=== PATIENT | female | born 1935 | race Caucasian/White ===

== ENCOUNTER 2020-09-12 10:39 | Emergency (ER) | payer MEDICARE, OTHER ==
[~2020-09-12] VITALS: Ht 157.5 cm; Wt 79.0 kg
[~2020-09-12 10:39] MED LIST: ADVAIR; ALBUTEROL; BENAZEPRIL; LOVASTATIN; OMEP20CA14; SINGULAIR; XOPENEX
[2020-09-12] MEDS ORDERED: FOLI-43 PO (10:50)
[2020-09-12] MEDS ORDERED: METH2.5T PO (10:50)
[2020-09-12] MEDS ORDERED: ATOR10TA69 PO (10:50)
[2020-09-12] MEDS ORDERED: BENA1TAB21 PO (10:50)
[2020-09-12] MEDS ORDERED: ACETAMINOPHEN 325MG TABLET PO STA (10:54)
[2020-09-12 12:15] LABS: CLARITY URINE CLEAR (CLEAR); COLOR URINE YELLOW (YELLOW); KETONES URINE NEGATIVE (NEGATIVE); LEUKOCYTE ESTERASE URINE NEGATIVE (NEGATIVE); NITRITE URINE NEGATIVE (NEGATIVE); OCCULT BLOOD URINE NEGATIVE (NEGATIVE); PH URINE 6.5 (4.5-8.0); PROTEIN URINE NEGATIVE (NEGATIVE); SPECIFIC GRAVITY URINE 1.017 (1.005-1.030); UROBILINOGEN URINE 0.2 E.U./dL (0.2-1.0)
[2020-09-12] MEDS ORDERED: TRAM50TA3 PO (12:49)
[2020-09-12 13:04] VITALS: BP 125/65
== END 2020-09-12 13:05 | disposition home or self-care (01) ==
LOC: ER 10:39
DX: M54.41 Lumbago with sciatica, right side (principal); J45.909 Unspecified asthma, uncomplicated; E78.00 Pure hypercholesterolemia, unspecified; Z79.899 Other long term (current) drug therapy; Z90.710 Acquired absence of both cervix and uterus
CPT/HCPCS: 81003; 99283

== ENCOUNTER 2020-09-14 15:08 | Inpatient (IN) | payer BC, MEDICARE ==
[~2020-09-14] VITALS: Ht 157.5 cm; Wt 74.8 kg
[~2020-09-14 15:08] MED LIST changes: +ATOR10TA69 PO; +BENA1TAB21 PO; +FOLI-43 PO; +METH2.5T PO; +TRAM50TA3 PO
[2020-09-14] MEDS ORDERED: ACETAMINOPHEN 325MG TABLET PO ONE (15:45)
[2020-09-14 16:16] LABS: CLARITY URINE CLEAR (CLEAR); COLOR URINE YELLOW (YELLOW); KETONES URINE NEGATIVE (NEGATIVE); LEUKOCYTE ESTERASE URINE NEGATIVE (NEGATIVE); NITRITE URINE NEGATIVE (NEGATIVE); OCCULT BLOOD URINE NEGATIVE (NEGATIVE); PROTEIN URINE NEGATIVE (NEGATIVE); SPECIFIC GRAVITY URINE 1.026 (1.005-1.030)
[2020-09-14 19:05] LABS: HEMATOCRIT. 36.2 % (36.0-48.0); HEMOGLOBIN. 12.5 g/dL (12.0-16.0); MEAN CORPUSCULAR HEMOGLOBIN 32.2 pg (28.0-32.0); MEAN CORPUSCULAR VOLUME 93.1 fL (81.0-99.0); MEAN PLATELET VOLUME 7.7 fl (7.4-10.4); PLATELET 238 x1000/uL (130-400); RED BLOOD CELL COUNT 3.89 mill/uL (4.2-5.4); RED CELL DISTRIBUTION WIDTH 15.3 % (11.6-14.6)
[2020-09-14 19:14] LABS: CHLORIDE 105 mEq/L (98-107)
[2020-09-14 19:53] LABS: PLATELET ESTIMATE NORMAL
[2020-09-15] MEDS: DEXAMETHASONE 4MG/ML 1ML VIAL IV SCH ×4 (01:10→17:15)
[2020-09-15 09:00] VITALS: BP 166/50
[2020-09-15 10:11] VITALS: BP 160/50
[2020-09-15 12:00] VITALS: BP 156/58
[2020-09-15] MEDS ORDERED: ACETAMINOPHEN 325MG TABLET PO PRN (12:45)
[2020-09-15] MEDS ORDERED: MORPHINE SULFATE 2 MG/ML CPJ (NOT FOR IM USE) IV PRN (12:45)
[2020-09-15] MEDS ORDERED: DIPHENHYDRAMINE 50MG/ML VIAL IV PRN (12:45)
[2020-09-15] MEDS ORDERED: MAGNESIUM/ALUMINUM HYDROXIDE/SIMETHICONE 30ML UDC PO PRN (12:45)
[2020-09-15] MEDS ORDERED: GUAIFENESIN 200MG/10ML SUGAR FREE UDC PO PRN (12:45)
[2020-09-15] MEDS ORDERED: NA PHOS,M-B/NA PHOS,DI-BA ENEMA 118ML PR PRN (12:45)
[2020-09-15] MEDS ORDERED: LORAZEPAM 0.5MG TABLET PO PRN (12:45)
[2020-09-15] MEDS ORDERED: IPRATROPIUM/ALBUTEROL 0.5-3(2.5)MG/3ML NEB NEB PRN (12:45)
[2020-09-15] MEDS ORDERED: ONDANSETRON HCL 4MG/2ML INJ IV PRN (12:45)
[2020-09-15] MEDS ORDERED: DOCUSATE SODIUM 100MG CAPSULE PO PRN (12:45)
[2020-09-15] MEDS ORDERED: HYDROCODONE/ACETAMINOPHEN 5/325MG TABLET PO PRN (12:45)
[2020-09-15] MEDS ORDERED: ACETAMINOPHEN 650MG SUPP PR PRN (12:45)
[2020-09-15] MEDS ORDERED: ENOXAPARIN 30MG/0.3ML SYR SUBCUT SCH (13:00)
[2020-09-15] MEDS: AMLODIPINE 5MG TABLET PO SCH (13:02)
[2020-09-15] MEDS ORDERED: HYDR-4001 MT (15:28)
[2020-09-15] MEDS ORDERED: DEXA4TAB PO (15:28)
[2020-09-15 16:22] LABS: HEMATOCRIT. 40.2 % (36.0-48.0); HEMOGLOBIN. 13.8 g/dL (12.0-16.0); MEAN CORPUSCULAR HEMOGLOBIN 31.7 pg (28.0-32.0); MEAN CORPUSCULAR VOLUME 92.4 fL (81.0-99.0); MEAN PLATELET VOLUME 7.8 fl (7.4-10.4); PLATELET 261 x1000/uL (130-400); RED BLOOD CELL COUNT 4.35 mill/uL (4.2-5.4); RED CELL DISTRIBUTION WIDTH 15.5 % (11.6-14.6)
[2020-09-15 16:33] LABS: PROTHROMBIN TIME 10.8 sec (9.6-11.0)
[2020-09-15 16:58] LABS: CHLORIDE 105 mEq/L (98-107)
[2020-09-15 17:31] LABS: PLATELET ESTIMATE NORMAL
[2020-09-15 20:00] VITALS: BP 121/65
[2020-09-15] MEDS ORDERED: FAMOTIDINE 20MG TABLET PO SCH (21:00)
[2020-09-16] VITALS: BP 136/86
[2020-09-16] MEDS: DEXAMETHASONE 4MG/ML 1ML VIAL IV SCH ×3 (00:02→13:08)
[2020-09-16 04:00] VITALS: BP 130/85
[2020-09-16 08:00] VITALS: BP 165/63
[2020-09-16] MEDS ORDERED: ENOXAPARIN 40MG/0.4ML SYR SUBCUT SCH (09:00)
[2020-09-16] MEDS: AMLODIPINE 5MG TABLET PO SCH (09:55)
[2020-09-16 10:02] LABS: T4 FREE 1.1 ng/dL (0.76-1.46)
[2020-09-16] MEDS ORDERED: TRAM50TA3 MT (14:23)
[2020-09-16] MEDS ORDERED: GABA-529 PO (14:23)
[2020-09-16] MEDS ORDERED: GABAPENTIN 100MG CAPSULE PO SCH (14:30)
[2020-09-16 16:00] VITALS: BP 131/64
[2020-09-16 17:22] VITALS: BP 131/64
== END 2020-09-16 17:41 | disposition home health service (06) | DRG 552 ==
LOC: ER 15:08 → 6EST 19:00 → ENRESERV 09-15 07:25
PROVIDERS: ADMIT Internal Medicine; ATTEND Internal Medicine
DX: M48.061 Spinal stenosis, lumbar region without neurogenic claudication (principal); M48.56XA Collapsed vertebra, not elsewhere classified, lumbar region, initial encounter for fracture; M54.41 Lumbago with sciatica, right side; E78.5 Hyperlipidemia, unspecified; I10 Essential (primary) hypertension; K21.9 Gastro-esophageal reflux disease without esophagitis; M06.9 Rheumatoid arthritis, unspecified; R32 Unspecified urinary incontinence; J45.909 Unspecified asthma, uncomplicated; M19.90 Unspecified osteoarthritis, unspecified site; M47.816 Spondylosis without myelopathy or radiculopathy, lumbar region; R79.89 Other specified abnormal findings of blood chemistry; R26.89 Other abnormalities of gait and mobility; Z79.899 Other long term (current) drug therapy; Z90.710 Acquired absence of both cervix and uterus
CPT/HCPCS: 36415; 72148; 80053; 81003; 84439; 84443; 85025; 93306; 93970; 97162; 99285; J1100; J1650

== ENCOUNTER 2020-09-23 20:50 | Inpatient (IN) | payer BC ==
[~2020-09-23] VITALS: Ht 157.5 cm; Wt 79.4 kg
[~2020-09-23 20:50] MED LIST changes: +DEXA4TAB PO; +GABA-529 PO; +HYDR-4001 MT; -TRAM50TA3 PO
[2020-09-23] MEDS ORDERED: KETOROLAC 30MG/ML VIAL IV STA (23:39)
[2020-09-23] MEDS ORDERED: ACETAMINOPHEN WITH CODEINE 300/30MG TABLET PO ONE (23:45)
[2020-09-23 23:56] LABS: HEMATOCRIT. 40.4 % (36.0-48.0); HEMOGLOBIN. 13.7 g/dL (12.0-16.0); MEAN CORPUSCULAR HEMOGLOBIN 31.5 pg (28.0-32.0); MEAN CORPUSCULAR VOLUME 92.3 fL (81.0-99.0); MEAN PLATELET VOLUME 8.2 fl (7.4-10.4); PLATELET 251 x1000/uL (130-400); RED BLOOD CELL COUNT 4.37 mill/uL (4.2-5.4); RED CELL DISTRIBUTION WIDTH 15.5 % (11.6-14.6)
[2020-09-24 00:01] LABS: CHLORIDE 103 mEq/L (98-107)
[2020-09-24 00:36] LABS: PLATELET ESTIMATE NORMAL
[2020-09-24 09:00] VITALS: BP 157/68
[2020-09-24] MEDS ORDERED: IPRATROPIUM/ALBUTEROL 0.5-3(2.5)MG/3ML NEB NEB PRN (11:30)
[2020-09-24] MEDS ORDERED: DOCUSATE SODIUM 100MG CAPSULE PO PRN (11:30)
[2020-09-24] MEDS ORDERED: DIPHENHYDRAMINE 50MG/ML VIAL IV PRN (11:30)
[2020-09-24] MEDS ORDERED: MAGNESIUM/ALUMINUM HYDROXIDE/SIMETHICONE 30ML UDC PO PRN (11:30)
[2020-09-24] MEDS ORDERED: CLONIDINE 0.1MG TABLET PO PRN (11:30)
[2020-09-24] MEDS ORDERED: ONDANSETRON HCL 4MG/2ML INJ IV PRN (11:30)
[2020-09-24] MEDS ORDERED: LORAZEPAM 0.5MG TABLET PO PRN (11:30)
[2020-09-24] MEDS ORDERED: NA PHOS,M-B/NA PHOS,DI-BA ENEMA 118ML PR PRN (11:30)
[2020-09-24] MEDS ORDERED: GUAIFENESIN 200MG/10ML SUGAR FREE UDC PO PRN (11:30)
[2020-09-24] MEDS ORDERED: CEFTRIAXONE 1 G PREMIX 50 ML IV SCH (11:30)
[2020-09-24] MEDS ORDERED: ACETAMINOPHEN 650MG SUPP PR PRN (11:30)
[2020-09-24 12:00] VITALS: BP 149/74
[2020-09-24] MEDS ORDERED: LACTULOSE 20G/30ML UDC PO NR (13:00)
[2020-09-24] MEDS: ENOXAPARIN 40MG/0.4ML SYR SUBCUT SCH (13:42)
[2020-09-24] MEDS: ACETAMINOPHEN 325MG TABLET PO PRN ×2 (13:42→22:30)
[2020-09-24] MEDS: CEFTRIAXONE 1,000 MG in DEXTROSE 5% WATER 50 ML IV SCH (13:42)
[2020-09-24 14:49] LABS: BASOPHILS % 0.3 % (0.0-2.0); EOSINOPHILS % 1.5 % (0.0-5.0); HEMATOCRIT. 38.9 % (36.0-48.0); HEMOGLOBIN. 12.7 g/dL (12.0-16.0); MEAN CORPUSCULAR HEMOGLOBIN 30.4 pg (28.0-32.0); MEAN CORPUSCULAR VOLUME 93.4 fL (81.0-99.0); MEAN PLATELET VOLUME 8.2 fl (7.4-10.4); MONOCYTES % 7.4 % (2.0-8.0); NEUTROPHILS % 79.8 % (40.0-76.0); PLATELET 238 x1000/uL (130-400); RED BLOOD CELL COUNT 4.17 mill/uL (4.2-5.4); RED CELL DISTRIBUTION WIDTH 15.5 % (11.6-14.6)
[2020-09-24 14:55] LABS: PROTHROMBIN TIME 10.3 sec (9.6-11.0)
[2020-09-24 15:19] LABS: CHLORIDE 103 mEq/L (98-107)
[2020-09-24 15:55] LABS: CLARITY URINE CLEAR (CLEAR); COLOR URINE YELLOW (YELLOW); KETONES URINE NEGATIVE (NEGATIVE); LEUKOCYTE ESTERASE URINE NEGATIVE (NEGATIVE); NITRITE URINE NEGATIVE (NEGATIVE); OCCULT BLOOD URINE NEGATIVE (NEGATIVE); PH URINE 5.5 (4.5-8.0); PROTEIN URINE NEGATIVE (NEGATIVE); SPECIFIC GRAVITY URINE 1.027 (1.005-1.030)
[2020-09-24 16:00] VITALS: BP 158/66
[2020-09-24 20:00] VITALS: BP 154/71
[2020-09-24] MEDS: FAMOTIDINE 20MG TABLET PO SCH (22:28)
[2020-09-25] VITALS: BP 155/73
[2020-09-25 04:00] VITALS: BP 131/89
[2020-09-25 06:12] LABS: BASOPHILS % 0.3 % (0.0-2.0); EOSINOPHILS % 2.2 % (0.0-5.0); HEMATOCRIT. 37.8 % (36.0-48.0); HEMOGLOBIN. 12.4 g/dL (12.0-16.0); LYMPHOCYTES % 8.6 % (20.0-50.0); MEAN CORPUSCULAR HEMOGLOBIN 30.7 pg (28.0-32.0); MEAN CORPUSCULAR VOLUME 93.8 fL (81.0-99.0); MEAN PLATELET VOLUME 8.2 fl (7.4-10.4); MONOCYTES % 8.2 % (2.0-8.0); NEUTROPHILS % 80.7 % (40.0-76.0); PLATELET 207 x1000/uL (130-400); RED BLOOD CELL COUNT 4.03 mill/uL (4.2-5.4); RED CELL DISTRIBUTION WIDTH 15.5 % (11.6-14.6)
[2020-09-25] MEDS: ACETAMINOPHEN 325MG TABLET PO PRN ×2 (06:38→12:35)
[2020-09-25 08:00] VITALS: BP 155/78
[2020-09-25] MEDS: HYDROCODONE/ACETAMINOPHEN 5/325MG TABLET PO PRN (08:03)
[2020-09-25 08:11] LABS: CHLORIDE 105 mEq/L (98-107)
[2020-09-25 08:23] LABS: LDL CHOLESTEROL 101 mg/dL (5-100)
[2020-09-25 08:24] LABS: HDL CHOLESTEROL 46 mg/dL (40-59); T4 FREE 1.14 ng/dL (0.76-1.46)
[2020-09-25 12:00] VITALS: BP 145/69
[2020-09-25] MEDS: ENOXAPARIN 40MG/0.4ML SYR SUBCUT SCH (12:33)
[2020-09-25] MEDS: CEFTRIAXONE 1,000 MG in DEXTROSE 5% WATER 50 ML IV SCH (12:34)
[2020-09-25 16:00] VITALS: BP 133/67
[2020-09-25 20:00] VITALS: BP 143/74
[2020-09-25] MEDS: FAMOTIDINE 20MG TABLET PO SCH (21:00)
[2020-09-26] VITALS: BP 145/71
[2020-09-26 04:00] VITALS: BP 168/70
[2020-09-26] MEDS: MORPHINE SULFATE 2 MG/ML CPJ (NOT FOR IM USE) IV PRN ×3 (04:35→20:23)
[2020-09-26] MEDS: HYDROCODONE/ACETAMINOPHEN 5/325MG TABLET PO PRN (07:24)
[2020-09-26 08:00] VITALS: BP 136/97
[2020-09-26 12:00] VITALS: BP 140/67
[2020-09-26] MEDS: CEFTRIAXONE 1,000 MG in DEXTROSE 5% WATER 50 ML IV SCH (12:59)
[2020-09-26] MEDS: ENOXAPARIN 40MG/0.4ML SYR SUBCUT SCH (12:59)
[2020-09-26 16:00] VITALS: BP 119/76
[2020-09-26] MEDS: DEXAMETHASONE 10 MG/ML VIAL IV SCH (17:01)
[2020-09-26 18:03] LABS: BASOPHILS % 0.3 % (0.0-2.0); EOSINOPHILS % 1.4 % (0.0-5.0); HEMATOCRIT. 40.7 % (36.0-48.0); HEMOGLOBIN. 13.3 g/dL (12.0-16.0); LYMPHOCYTES % 7.2 % (20.0-50.0); MEAN CORPUSCULAR HEMOGLOBIN 31.1 pg (28.0-32.0); MONOCYTES % 7.4 % (2.0-8.0); NEUTROPHILS % 83.7 % (40.0-76.0); PLATELET 191 x1000/uL (130-400); RED BLOOD CELL COUNT 4.29 mill/uL (4.2-5.4); RED CELL DISTRIBUTION WIDTH 15.6 % (11.6-14.6)
[2020-09-26 18:25] LABS: CHLORIDE 103 mEq/L (98-107)
[2020-09-26 20:00] VITALS: BP 142/86
[2020-09-26] MEDS: FAMOTIDINE 20MG TABLET PO SCH (20:22)
[2020-09-27] VITALS: BP 138/68
[2020-09-27] MEDS: DEXAMETHASONE 10 MG/ML VIAL IV SCH ×3 (00:41→12:11)
[2020-09-27 04:00] VITALS: BP 147/66
[2020-09-27 06:41] LABS: HEMATOCRIT. 38.7 % (36.0-48.0); MEAN CORPUSCULAR HEMOGLOBIN 31.8 pg (28.0-32.0); MEAN CORPUSCULAR VOLUME 94.6 fL (81.0-99.0); MEAN PLATELET VOLUME 8.3 fl (7.4-10.4); PLATELET 226 x1000/uL (130-400); RED CELL DISTRIBUTION WIDTH 15.4 % (11.6-14.6)
[2020-09-27 07:15] LABS: CHLORIDE 102 mEq/L (98-107)
[2020-09-27 08:00] VITALS: BP 140/73
[2020-09-27] MEDS: MORPHINE SULFATE 2 MG/ML CPJ (NOT FOR IM USE) IV PRN (08:37)
[2020-09-27] MEDS: CEFTRIAXONE 1,000 MG in DEXTROSE 5% WATER 50 ML IV SCH (12:11)
[2020-09-27] MEDS: ENOXAPARIN 40MG/0.4ML SYR SUBCUT SCH (12:11)
[2020-09-27 12:19] VITALS: BP 144/89
[2020-09-27 16:00] VITALS: BP 150/76
[2020-09-27 17:46] LABS: PLATELET ESTIMATE NORMAL
[2020-09-27 20:00] VITALS: BP 149/69
[2020-09-27] MEDS: FAMOTIDINE 20MG TABLET PO SCH (21:42)
[2020-09-28 00:41] VITALS: BP 140/76
[2020-09-28 04:00] VITALS: BP 112/73
[2020-09-28 08:00] VITALS: BP 131/70
[2020-09-28] MEDS: ACETAMINOPHEN 325MG TABLET PO PRN (08:37)
[2020-09-28 12:00] VITALS: BP 117/74
[2020-09-28] MEDS: CEFTRIAXONE 1,000 MG in DEXTROSE 5% WATER 50 ML IV SCH (12:10)
[2020-09-28] MEDS: ENOXAPARIN 40MG/0.4ML SYR SUBCUT SCH (12:10)
[2020-09-28] MEDS: HYDROCODONE/ACETAMINOPHEN 5/325MG TABLET PO PRN (14:30)
[2020-09-28 16:00] VITALS: BP 109/69
== END 2020-09-28 17:59 | DRG 542 ==
LOC: ER 22:18 → CANRESERV 09-24 07:17 → ENRESERV 09-24 07:17 → 5WST 09-24 09:22
PROVIDERS: ADMIT Internal Medicine; ATTEND Internal Medicine
DX: M48.56XA Collapsed vertebra, not elsewhere classified, lumbar region, initial encounter for fracture (principal); G92 Toxic encephalopathy; E87.1 Hypo-osmolality and hyponatremia; N39.0 Urinary tract infection, site not specified; J45.901 Unspecified asthma with (acute) exacerbation; M48.061 Spinal stenosis, lumbar region without neurogenic claudication; M47.816 Spondylosis without myelopathy or radiculopathy, lumbar region; M06.9 Rheumatoid arthritis, unspecified; K59.00 Constipation, unspecified; M54.41 Lumbago with sciatica, right side; K21.9 Gastro-esophageal reflux disease without esophagitis; I10 Essential (primary) hypertension; M19.90 Unspecified osteoarthritis, unspecified site; R26.89 Other abnormalities of gait and mobility; R73.9 Hyperglycemia, unspecified; R74.01 Elevation of levels of liver transaminase levels; M51.26 Other intervertebral disc displacement, lumbar region; T38.0X5A Adverse effect of glucocorticoids and synthetic analogues, initial encounter; G89.29 Other chronic pain; D72.829 Elevated white blood cell count, unspecified; E78.5 Hyperlipidemia, unspecified; Z90.710 Acquired absence of both cervix and uterus; Y92.89 Other specified places as the place of occurrence of the external cause; Z79.899 Other long term (current) drug therapy; M95.5 Acquired deformity of pelvis
CPT/HCPCS: 36415; 72100; 72148; 72192; 80048; 80053; 80061; 81003; 82962; 84439; 84443; 85025; 85651; 87426; 93970; 97162; 97530; 97535; 99285; C1893; J0696; J1100; J1650; J1885; J2270; J7060

== ENCOUNTER 2020-11-09 04:22 | Inpatient (IN) | payer BC, OTHER ==
[~2020-11-09] VITALS: Ht 154.9 cm; Wt 76.7 kg
[2020-11-09 05:24] LABS: CHLORIDE 109 mEq/L (98-107)
[2020-11-09 05:29] LABS: BASOPHILS % 0.7 % (0.0-2.0); HEMATOCRIT. 33.9 % (36.0-48.0); HEMOGLOBIN. 11.3 g/dL (12.0-16.0); LYMPHOCYTES % 9.5 % (20.0-50.0); MEAN CORPUSCULAR HEMOGLOBIN 32.6 pg (28.0-32.0); MEAN CORPUSCULAR VOLUME 97.8 fL (81.0-99.0); MEAN PLATELET VOLUME 7.5 fl (7.4-10.4); MONOCYTES % 6.8 % (2.0-8.0); PLATELET 263 x1000/uL (130-400); RED BLOOD CELL COUNT 3.46 mill/uL (4.2-5.4); RED CELL DISTRIBUTION WIDTH 18.2 % (11.6-14.6)
[2020-11-09] MEDS ORDERED: SODIUM POLYSTYRENE SULFONATE 15 G/60 ML BOT PO ONE (06:30)
[2020-11-09] MEDS ORDERED: LACTULOSE 20G/30ML UDC PO ONE (06:30)
[2020-11-09] MEDS ORDERED: MAGNESIUM CITRATE 300ML SOLUTION PO ONE (06:30)
[2020-11-09] MEDS ORDERED: SODIUM CHLORIDE 0.9% 1,000 ML IV ONE (08:45)
[2020-11-09] MEDS ORDERED: ONDANSETRON HCL 4MG/2ML INJ IV PRN (13:15)
[2020-11-09] MEDS ORDERED: LORAZEPAM 0.5MG TABLET PO PRN (13:15)
[2020-11-09] MEDS ORDERED: ACETAMINOPHEN 325MG TABLET PO PRN (13:15)
[2020-11-09] MEDS ORDERED: IPRATROPIUM/ALBUTEROL 0.5-3(2.5)MG/3ML NEB NEB PRN (13:15)
[2020-11-09] MEDS ORDERED: DIPHENHYDRAMINE 50MG/ML VIAL IV PRN (13:15)
[2020-11-09] MEDS ORDERED: MAGNESIUM/ALUMINUM HYDROXIDE/SIMETHICONE 30ML UDC PO PRN (13:15)
[2020-11-09] MEDS ORDERED: NALOXONE HCL 0.4MG/ML VIAL IV PRN (13:30)
[2020-11-09] MEDS: PANTOPRAZOLE SODIUM 40 MG/VIAL IV SCH (16:47)
[2020-11-09] MEDS: DEXT 5%/0.45% NACL 1000ML 1,000 ML IV SCH (16:47)
[2020-11-09] MEDS: DOCUSATE SODIUM 100MG CAPSULE PO SCH (17:00)
[2020-11-09 17:38] LABS: PROTHROMBIN TIME 10.3 sec (9.6-11.0)
[2020-11-09 17:39] LABS: HEMOGLOBIN 11.7 g/dL (12.0-16.0)
[2020-11-09] MEDS ORDERED: SENNOSIDES/DOCUSATE SOD 8.6/50MG TABLET PO PRN (21:00)
[2020-11-09 21:50] VITALS: BP 141/70
[2020-11-09 22:40] VITALS: BP 141/70
[2020-11-09] MEDS: MORPHINE SULFATE 2 MG/ML CPJ (NOT FOR IM USE) IV PRN (22:45)
[2020-11-09 23:56] LABS: CLARITY URINE CLEAR (CLEAR); COLOR URINE YELLOW (YELLOW); KETONES URINE TRACE (NEGATIVE); LEUKOCYTE ESTERASE URINE NEGATIVE (NEGATIVE); NITRITE URINE NEGATIVE (NEGATIVE); OCCULT BLOOD URINE NEGATIVE (NEGATIVE); PH URINE 8.5 (4.5-8.0); PROTEIN URINE TRACE (NEGATIVE); SPECIFIC GRAVITY URINE 1.016 (1.005-1.030)
[2020-11-10] VITALS: BP 142/78
[2020-11-10] MEDS: MORPHINE SULFATE 2 MG/ML CPJ (NOT FOR IM USE) IV PRN ×2 (02:49→09:42)
[2020-11-10 04:00] VITALS: BP 109/47
[2020-11-10 08:25] VITALS: BP 110/52
[2020-11-10] MEDS: DOCUSATE SODIUM 100MG CAPSULE PO SCH ×2 (08:38→16:18)
[2020-11-10] MEDS: PANTOPRAZOLE SODIUM 40 MG/VIAL IV SCH (08:38)
[2020-11-10] MEDS: DEXT 5%/0.45% NACL 1000ML 1,000 ML IV SCH (08:39)
[2020-11-10] MEDS ORDERED: POLYETHYLENE GLYCOL 3350 (17GM) 1 DOSE PACK PO SCH (09:00)
[2020-11-10 09:39] LABS: BASOPHILS % 0.9 % (0.0-2.0); EOSINOPHILS % 2.9 % (0.0-5.0); HEMATOCRIT. 33.9 % (36.0-48.0); HEMOGLOBIN. 11.4 g/dL (12.0-16.0); LYMPHOCYTES % 12.4 % (20.0-50.0); MEAN CORPUSCULAR HEMOGLOBIN 32.7 pg (28.0-32.0); MEAN CORPUSCULAR VOLUME 97.5 fL (81.0-99.0); MEAN PLATELET VOLUME 7.6 fl (7.4-10.4); MONOCYTES % 11.7 % (2.0-8.0); NEUTROPHILS % 72.1 % (40.0-76.0); PLATELET 251 x1000/uL (130-400); RED BLOOD CELL COUNT 3.48 mill/uL (4.2-5.4); RED CELL DISTRIBUTION WIDTH 18.6 % (11.6-14.6)
[2020-11-10 09:46] LABS: CHLORIDE 107 mEq/L (98-107)
[2020-11-10 09:53] LABS: LDL CHOLESTEROL 80 mg/dL (5-100)
[2020-11-10 09:54] LABS: HDL CHOLESTEROL 56 mg/dL (40-59)
[2020-11-10 09:57] LABS: T4 FREE 1.06 ng/dL (0.76-1.46)
[2020-11-10 11:56] VITALS: BP 156/66
[2020-11-10] MEDS ORDERED: DOCU-138 MT (15:30)
[2020-11-10 16:14] VITALS: BP 128/56
[2020-11-10 18:13] VITALS: BP 107/46
== END 2020-11-10 19:40 | disposition home health service (06) | DRG 378 ==
LOC: ER 04:22 → MICUSO 09:31 → EDBEDREQTM 09:39 → EDBEDREQ 09:39 → 6EST 12:25 → MICUSO 16:51 → 6WST 20:50
PROVIDERS: ADMIT Internal Medicine; ATTEND Internal Medicine
DX: K57.31 Diverticulosis of large intestine without perforation or abscess with bleeding (principal); M48.56XA Collapsed vertebra, not elsewhere classified, lumbar region, initial encounter for fracture; I31.3 Pericardial effusion (noninflammatory); D62 Acute posthemorrhagic anemia; E44.1 Mild protein-calorie malnutrition; K56.41 Fecal impaction; M19.90 Unspecified osteoarthritis, unspecified site; N20.0 Calculus of kidney; E78.5 Hyperlipidemia, unspecified; G89.29 Other chronic pain; J45.909 Unspecified asthma, uncomplicated; K21.9 Gastro-esophageal reflux disease without esophagitis; M48.061 Spinal stenosis, lumbar region without neurogenic claudication; E88.09 Other disorders of plasma-protein metabolism, not elsewhere classified; D64.9 Anemia, unspecified; T40.2X5A Adverse effect of other opioids, initial encounter; E66.9 Obesity, unspecified; I35.8 Other nonrheumatic aortic valve disorders; Z79.891 Long term (current) use of opiate analgesic; Z79.899 Other long term (current) drug therapy; Z90.710 Acquired absence of both cervix and uterus; Y92.89 Other specified places as the place of occurrence of the external cause; Z68.31 Body mass index [BMI] 31.0-31.9, adult; I10 Essential (primary) hypertension; R00.2 Palpitations; Z71.3 Dietary counseling and surveillance; M06.9 Rheumatoid arthritis, unspecified
CPT/HCPCS: 36415; 74018; 74176; 80053; 80061; 81003; 83735; 84439; 84443; 84481; 84484; 85014; 85018; 85025; 85044; 86850; 86900; 87426; 93005; 93306; 99285; A6261; C9113; J2270; J7030

== ENCOUNTER 2023-04-06 13:38 | Emergency (ER) | payer BC ==
[~2023-04-06] VITALS: Ht 157.5 cm; Wt 79.0 kg
[~2023-04-06 13:38] MED LIST changes: -DEXA4TAB PO; +DOCU-138 MT
[2023-04-06 13:46] VITALS: O2SAT 97
[2023-04-06 15:01] LABS: HEMATOCRIT. 34.7 % (36.0-48.0); HEMOGLOBIN. 11.1 g/dL (12.0-16.0); MEAN CORPUSCULAR HGB CONC 31.9 g/dL (31.0-37.0); MEAN CORPUSCULAR VOLUME 100.2 fL (81.0-99.0); MEAN PLATELET VOLUME 7.8 fl (7.4-10.4); PLATELET 299 x1000/uL (130-400); RED BLOOD CELL COUNT 3.47 mill/uL (4.2-5.4); RED CELL DISTRIBUTION WIDTH 15.8 % (11.6-14.6); WHITE BLOOD COUNT 9.6 x1000/uL (4.5-11.0)
[2023-04-06 15:07] LABS: DIFFERENTIAL COMMENT 1
[2023-04-06 15:26] LABS: TROPONIN I HIGH SENSITIVITY 8 ng/L (3.0-34)
[2023-04-06 15:27] LABS: ALANINE AMINOTRANSFERASE 8 IU/L (10-49); ALBUMIN 3.6 g/dL (3.2-4.8); ASPARTATE AMINOTRANSFERASE 13 IU/L (<34); BILIRUBIN TOTAL 0.6 mg/dL (0.1-1.0); CALCIUM 8.9 mg/dL (8.7-10.4); CARBON DIOXIDE 28 mEq/L (21-32); CHLORIDE 107 mEq/L (98-107); CREATININE 0.8 mg/dL (0.6-1.0); GLUCOSE 188 mg/dL (70-105); POTASSIUM 4.5 mEq/L (3.5-5.1); PROTEIN TOTAL 6.5 g/dL (6.0-8.3); SODIUM 139 mEq/L (136-145); UREA NITROGEN BLOOD 20 mg/dL (9-23)
[2023-04-06 15:29] LABS: CLARITY URINE CLEAR (CLEAR); COLOR URINE YELLOW (YELLOW); GLUCOSE URINE NEGATIVE (NEGATIVE); KETONES URINE NEGATIVE (NEGATIVE); LEUKOCYTE ESTERASE URINE NEGATIVE (NEGATIVE); NITRITE URINE NEGATIVE (NEGATIVE); OCCULT BLOOD URINE 2+ (NEGATIVE); PH URINE 6.5 (4.5-8.0); PROTEIN URINE NEGATIVE (NEGATIVE)
[2023-04-06] MEDS ORDERED: AMOX-494 MT (16:35)
[2023-04-06] MEDS ORDERED: IBUP-2029 MT (16:36)
[2023-04-06 16:50] VITALS: BP 137/79; PULSE 77; RESP 18; TEMP 98.7
[2023-04-06 17:24] LABS: BACTERIA URINE 2+; RBC URINE 15-25 /hpf (0-2); SQUAMOUS EPITHELIAL CELL URINE 1+ /lpf (RARE/1+); WBC URINE 0-2 /hpf (0-2)
[2023-04-06 17:29] LABS: ANISOCYTOSIS 1+; PLATELET ESTIMATE NORMAL
== END 2023-04-06 16:51 | disposition home or self-care (01) ==
LOC: ER 13:38
DX: J18.9 Pneumonia, unspecified organism (principal); J45.909 Unspecified asthma, uncomplicated; I10 Essential (primary) hypertension; Z90.710 Acquired absence of both cervix and uterus; Z79.899 Other long term (current) drug therapy
CPT/HCPCS: 36415; 71045; 74176; 80053; 81003; 83880; 84484; 85025; 93005; 99285